=== PATIENT | female | born 1985 ===

== ENCOUNTER → 2016-09-25 | Day surgery (SDC) | payer OTHER ==
[2016-09-25] VITALS (10 sets, daily range): BP systolic 90–115; BP diastolic 47–61
[~2016-09-25] VITALS: Ht 166.4 cm; Wt 62.1 kg
[~2016-09-25] MED LIST: Bupivacaine 0.5% Inj 30 ml vial INJ ONE; Dexamethasone 4mg/ml vial ONE; DiphenhydrAMINE 50mg/ml Inj IVP PRN; Hydromorphone 0.5mg/0.5ml inj IVP PRN; Ketorolac 30mg Inj IV PRN; Ketorolac 30mg Inj ONE; LR 1000ml 1,000 ML IVLG SCH; LR 1000ml ONE; Lidocaine 1% Plain 30 ml INJ ONE; Meperidine 25mg/ml Inj IV PRN; Metoclopramide 10mg/2ml Inj IVP PRN; Midazolam 2mg/2ml Inj IVP PRN; Midazolam 2mg/2ml Inj ONE; NKM; NS Irrig 1000ml IRRIG ONE; NS Irrig 1000ml ONE; Propofol 10mg/ml 20ml IV ONE; Sterile Water Irrig 1000ml IRRIG ONE; fentaNYL 100 mcg/2 mL IV ONE
--- NOTE | 2016-09-25 07:38 | Pre-Procedure Note/Attestation ---
Pre-Procedure Note/Attestation Complete Prior to Procedure Planned Procedure: left Procedure Narrative: Bunionectomy osteotomy left foot Indications for Procedure Pre-Operative Diagnosis: Hallux Abducto Valgus with bunion deformity left foot Attestation I attest that I discussed the nature of the procedure; its benefits; risks and complications; and alternatives (and the risks and benefits of such alternatives ), prior to the procedure, with the patient (or the patient's legal territory sales representative). I attest that, if there was a reasonable possibility of needing a blood transfusion, the patient (or the patient's legal territory sales representative) was given the [facility] standardized written summary, pursuant to the Abel Abdiaziz Blood Safety Act ([place] Health and Safety Code # 1645, as amended). I attest that I re-evaluated the patient just prior to the surgery and that there has been no change in the patient's H&P, except as documented below: SAVANNAH GONZALES Sep 25, 2016 07:38
--- NOTE | 2016-09-25 08:12 | Anethesia Preoperative Eval ---
Anesthesia Pre-op PMH/ROS General Date of Evaluation: Sep 25, 2016 Time of Evaluation: 07:28 Anesthesiologist: Terry ASA Score: ASA 2 Mallampati Score Class I : Soft palate, uvula, fauces, pillars visible Class II: Soft palate, uvula, fauces visible Class III: Soft palate, base of uvula visible Class IV: Only hard plate visible Mallampati Classification: Class II Surgeon: Raven Diagnosis: L foot bunion Surgical Procedure: L foot bunionectomy Anesthesia History: none Family History: no anesthesia problems Allergies: Coded Allergies: LATEX (Verified Allergy, Mild, irritated skin, 09/24/16) Medications: see eMAR Past Medical History Cardiovascular: Denies: CAD, HTN, [place], arrhythmia, other, valve dz Pulmonary: Denies: COPD, PRASANNA, asthma, other Gastrointestinal/Genitourinary: Reports: GERD - mild Neurologic/Psychiatric: Denies: CVA, TIA, dementia, depression/anxiety, other Endocrine: Denies: DM, hypothyroidism, other, steroids HEENT: Denies: [place] (L), [place] (R), cataract (L), cataract (R), glaucoma, other Hematology/Immune: Denies: DVT, anemia, bleeding disorder, other Musculoskeletal/Integumentary: Denies: DDD, DJD, OA, RA, edema, other PMH Narrative: as above PSxH Narrative: none Anesthesia Pre-op Phys. Exam Physician Exam Last Vital Signs Date Time Temp Pulse Resp B/P Pulse Ox O2 Delivery O2 Flow Rate FiO2 09/25/16 06:20 97.7 60 20 96/55 100 Room Air Constitutional: NAD Neurologic: CN 2-12 intact Cardiovascular: RRR, no M/R/G Respiratory: CTA Gastrointestinal: S/NT/ND Airway Exam Mallampati Score: Class II MO: full Neck: flexible ROM: full Teeth: intact Dentures: no lower, no upper Anesthesia Pre-op A/P Labs see chart Urine Test Test 09/25/16 06:00 Urine HCG, Qualitative Negative Risk Assessment & Plan Assessment: ASA 2 Plan: GA with LMA patients request Status Change Before Surgery: No Pre-Antibiotics Drug: Ancef 1gr. Given Within 1 Hr of Incision: Yes Time Given: 07:56 JAMES SHAH M.D. Sep 25, 2016 08:12
--- NOTE | 2016-09-25 09:12 | Brief Operative Note ---
Immediate Post Operative Note Operative Note Pre-op Diagnosis: Hallux Abducto Valgus with bunion deformity left foot Procedure: Tay zaid bunionectomy left foot Post-op Diagnosis: same as pre-op Surgeon: Raven Anesthesiologist: Terry Anesthesia: general Specimen: yes Complications: none Condition: stable Estimated Blood Loss: none Drains: none Implant(s) used?: Yes SAVANNAH GONZALES Sep 25, 2016 09:12
--- NOTE | 2016-09-25 10:16 | Immediate Post-Op Evaluation ---
Immediate Post-Op Evalulation Immediate Post-Op Evalulation Procedure: L foot bunionectomy Date of Evaluation: Sep 25, 2016 Time of Evaluation: 09:19 IV Fluids: 1100 Blood Products: none Estimated Blood Loss: min Urinary Output: none Blood Pressure Systolic: 116 Blood Pressure Diastolic: 59 Pulse Rate: 82 Respiratory Rate: 20 O2 Sat by Pulse Oximetry: 99 Temperature (Fahrenheit): 97.6 Pain Score (1-10): 2 Nausea: No Vomiting: No Complications none Patient Status: reacts, patent, none Hydration Status: adequate JAMES SHAH M.D. Sep 25, 2016 10:16
--- NOTE | 2016-09-25 10:18 | 48 Hour Post Anesthesia Eval ---
Post Anesthesia Evaluation Procedure: L foot bunionectomy Date of Evaluation: Sep 25, 2016 Time of Evaluation: 10:17 Blood Pressure Systolic: 108 0: 52 Pulse Rate: 78 Respiratory Rate: 22 Temperature (Fahrenheit): 97.6 O2 Sat by Pulse Oximetry: 98 Airway: patent Nausea: No Vomiting: No Pain Intensity: 1 Hydration Status: adequate Cardiopulmonary Status: stable Mental Status/LOC: patient returned to baseline Follow-up Care/Observations: n/a Post-Anesthesia Complications: none Follow-up care needed: ready to discharge JAMES SHAH M.D. Sep 25, 2016 10:18
--- NOTE | 2016-09-25 16:19 | Diagnostic Imaging Report ---
Indication: POST-OP, pain Technique: 3 views left foot Comparison: none Findings: Surgical staple is seen reducing first proximal phalangeal osteotomy. Surgical screw is seen reducing first metatarsal osteotomy. There is evidence of laminectomy. Small amount of retained incidental air is seen within the soft tissues no acute fractures. No dislocations. Joint spaces are preserved. There is metatarsus adductus Impression: Postoperative left foot. No unusual features
--- NOTE | 2016-09-25 17:29 | Pre-op HX & Phy Repo 2 SIG ---
DATE OF ADMISSION: 09/25/2016 HISTORY OF PRESENT ILLNESS: This is a 31-year-old white female that is admitted today for an outpatient bunionectomy of her left foot. The patient has been complaining of pain from her bunion, mostly in shoe gear. Previous treatments, which included shoe gear modification and padding, failed to alleviate her symptoms and the patient elected to undergo surgery. PAST MEDICAL HISTORY: Unremarkable. MEDICATIONS: None. ALLERGIES: Latex. PODIATRIC PHYSICAL EXAMINATION: VASCULAR STATUS: Dorsalis pedis and posterior tibial arteries are equally strong and palpable bilaterally. The capillary filling time is less than 3 seconds to all digits bilaterally. Homans sign is negative. No varicosities are noted. NEUROLOGICAL: Reflexes of Achilles and patellar are brisk, measuring 2/4 bilaterally. The sensation, proprioception and vibration sensations are all intact bilaterally. Babinski is absent. Clonus is negative bilaterally. MUSCULOSKELETAL: Bilateral hallux abductovalgus with bunion deformities, with the left foot greater than the right. Mid adductus is noted bilaterally. Range of motions of all the joints are full, pain-free, and without crepitation. No other structural deformities are noted. DERMATOLOGICAL: The skin is intact without lesions, ulcerations, or scars bilaterally. All nails are present and healthy bilaterally. ASSESSMENT: Hallux abductovalgus with bunion deformity. PLAN: The patient is admitted today for bunionectomy of the left foot. Postoperative instructions were given. Pain medication prescription was dispensed to the patient, and the patient elected to proceed with surgery. Shane Carbajal D.P.M. DR: JULIO JOB#: [id number] CC:
--- NOTE | 2016-09-25 17:59 | Operative Note - Dictated ---
DATE OF OPERATION: 09/25/2016 SURGEON: Shane Carbajal D.P.M. ANESTHESIOLOGIST: Richmond Stewart M.D. ANESTHESIA: General. PREOPERATIVE DIAGNOSIS: Hallux abductovalgus with bunion deformity, left foot. POSTOPERATIVE DIAGNOSIS: Hallux abductovalgus with bunion deformity, left foot. PROCEDURE PERFORMED: 1. Tay bunionectomy with screw fixation, left foot. 2. Jose Alfredo osteotomy with staple fixation, left foot. DESCRIPTION OF OPERATION: The patient was brought to the operating room and was placed on the operating room table in the supine position. General anesthesia was administered by the anesthesiologist. Local anesthesia consisting of 0.5% Marcaine plain, total of 20 mL was administered to the left foot. An ankle tourniquet was applied to the left lower extremity. The foot was prepped and draped in the usual sterile manner. An Esmarch bandage was utilized to exsanguinate the blood and the left ankle tourniquet was inflated to 250 mmHg. Attention was then directed to the left hallux. An approximately 6 cm dorsal linear skin incision was centered over the first metatarsophalangeal joint. The incision was deepened utilizing sharp and blunt dissection with care being taken to cauterize and ligate all bleeders. At the level of the joint, a linear capsulotomy was performed. The capsule was reflected medially and laterally, and the metatarsal head and base of the proximal phalanx were exposed. Utilizing a sagittal saw, the medial eminence was resected in toto from the metatarsal head. The remaining bone was rasped smooth. The wound was copiously flushed utilizing sterile saline. At this point, a V-type osteotomy through and through was performed at the level of the metatarsal neck. The capital fragment was transposed and fixated onto the first metatarsal utilizing a 20 mm 3-0 headless screw, which was driven from dorsal proximal to plantar distal. At this point, the overhang was removed and the bone was rasped smooth. The wound was copiously flushed utilizing sterile saline. Attention was then directed distally to the proximal phalanx where a periosteal elevator was utilized to reflect the periosteum dorsally and plantarly. Utilizing a sagittal saw, a medial wedge was resected leaving the lateral cortex intact. At this point, two drill holes were created just distal and proximal to the osteotomy. The osteotomy was reduced and an 8 x 8 mm staple was inserted to fixate the osteotomy. The wound was copiously flushed utilizing sterile saline. At this point, the capsule was reapproximated utilizing 3-0 Vicryl in a simple interrupted type stitch. Subcutaneous tissue was then reapproximated utilizing 4-0 Vicryl in a buried knot type stitch. The skin was then reapproximated utilizing 4-0 nylon in a simple interrupted type stitch. The wound was dressed utilizing an Adaptic 4 x 4 gauze and 3-inch Gwen. The left ankle tourniquet was deflated and vascular supply was noted to all digits, left foot. The patient left the operating room to recovery room with all vital signs stable. Shane Carbajal D.P.M. DR: JULIO JOB#: [id number] CC:
== END | disposition home or self-care (01) ==
LOC: SUR 05:38
DX: M20.12 Hallux valgus (acquired), left foot (principal); M21.612 Bunion of left foot; K21.9 Gastro-esophageal reflux disease without esophagitis; F17.200 Nicotine dependence, unspecified, uncomplicated; Z91.040 Latex allergy status
CPT/HCPCS: 28299; 73630; 81025; 97161; C1713; J0690; J1100; J1885; J2001; J2250; J2405; J2704; J3010; J3490; J7120; 94003; 94150; J2180